=== PATIENT | female | born 1970 | race Caucasian/White ===

== ENCOUNTER 2017-08-28 21:05 | Observation (INO) ==
[2017-08-28] MEDS ORDERED: THIAMINE INJ 100 MG, FOLIC ACID INJ 1 MG, MAGNESIUM SULF INJ 2 GM, MULTIVITAMIN INJ 10 ... IV STA (21:30)
[2017-08-28] MEDS ORDERED: ONDANSETRON 4 MG/2 ML VIAL IV STA (21:30)
[2017-08-28] MEDS ORDERED: PANTOPRAZOLE 40 MG VIAL IV STA (21:30)
[2017-08-28 21:52] LABS: Basophils % 0.3 % (0.0-0.8); Eosinophils # 0.1 10*3/uL (0.0-0.87); Eosinophils % 0.9 % (0.00-10.9); Hematocrit 32.5 VOL% (35.7-47.0); Immature Granulocytes % 0.3 %; Immature Granulocytes Absolute 0.03 #; Lymphocytes # 3.8 10*3/uL (1.4-4.0); Lymphocytes % 43.6 % (21.3-54.2); Mean Corpuscular HGB Conc 33.8 GM/DL (32-36); Mean Corpuscular Hemoglobin 33 PG (27-34); Mean Corpuscular Volume 98.2 FL (87-102); Mean Platelet Volume 12.2 FL (9.6-12.0); Monocytes # 0.5 10*3/uL (0.11-0.8); Monocytes % 6.1 % (1.7-12.7); Neutrophils # 4.3 10*3/uL (1.4-7.4); Neutrophils % 48.8 % (38.7-73.9); Platelet Count 181 T/CUMM (130-400); Red Blood Count 3.31 MC/CUMM (3.8-5.5); Red Cell Distribution Width 12.7 % (9.3-17.3); White Blood Count 8.8 T/CUMM (4-12)
[2017-08-28 22:12] LABS: Apearance,Urine CLEAR (Clear); Bilirubin,Urine Negative (Negative); Blood, Urine Moderate mg/dL (Negative); Glucose,Urine (UA) Negative (Negative); Ketones,Urine Negative (Negative); Mucus,Urine Occasional /LPF (Occasional); Nitrite,Urine Negative (Negative); Protein,Urine Negative; RBC,Urine 2 /HPF (0-4); Squamous Epithelial Cell,Urine Occasional /HPF (0-10); Urine Color Straw (Yellow); Urine Specific Gravity 1.002 (1.001-1.035); Urine Urobilinogen < 2.0 EU/DL (0.2-1.0); WBC,Urine 1 /HPF (0-6)
[2017-08-28 22:18] LABS: Partial Thromboplastin Time 26.8 SECS (0-40)
[2017-08-28 22:19] LABS: Barbiturates Screen,Urine Negative (Negative); Benzodiazepines Screen,Urine Negative (Negative); Cannabinoid Screen,Urine Negative (Negative); Opiate Screen,Urine Positive (Negative); Phencyclidine Screen,Urine Negative (Negative)
[2017-08-28 22:23] LABS: INR 1.1; PT Patient Result 11.1 SECS
[2017-08-28 22:50] LABS: Albumin 2.9 G/DL (3.4-5.0); Bilirubin,Total 0.4 MG/DL (0.2-1.0); Calcium 7.4 MG/DL (8.5-10.1); Total Protein 5.9 G/DL (6.4-8.3)
[2017-08-28 22:51] LABS: Osmolality,Calculated 280.1 MOS/KG (273-304); Potassium 3.1 MMOL/L (3.5-5.1)
[2017-08-28] MEDS ORDERED: SODIUM CHLORIDE 0.9% 1,000 ML IV STA (23:44)
[2017-08-29] MEDS ORDERED: BISACODYL 5 MG TABLET PO PRN (00:09)
[2017-08-29] MEDS ORDERED: LACTULOSE 20 GM/30 ML UDCUP PO STA ×2 (00:13→04:43)
[2017-08-29] MEDS ORDERED: POTASSIUM CHLORIDE 20 MEQ TABLET PO ONE ×2 (00:14→05:00)
[2017-08-29] MEDS ORDERED: MAGNESIUM SULF RIDER 4 GM in PREMIX 1 EACH IV ONE ×2 (00:14→05:00)
[2017-08-29] MEDS ORDERED: PERMETHRIN 5% CREAM 60 GM TUBE TOP ONE (00:34)
[2017-08-29] MEDS: SODIUM CHLORIDE 0.9% 1,000 ML IV SCH ×6 (00:35→20:18)
[2017-08-29] MEDS ORDERED: SODIUM CHLORIDE 0.9% 1,000 ML IV STA (01:44)
[2017-08-29] MEDS: ACETAMINOPHEN 325 MG TABLET PO PRN ×2 (02:10→09:47)
[2017-08-29] MEDS: ONDANSETRON 4 MG/2 ML VIAL IV PRN ×4 (06:06→23:17)
[2017-08-29 06:54] LABS: Albumin 2.8 G/DL (3.4-5.0); Calcium 7.6 MG/DL (8.5-10.1); Osmolality,Calculated 285.6 MOS/KG (273-304); Potassium 3.5 MMOL/L (3.5-5.1); Total Protein 5.8 G/DL (6.4-8.3)
[2017-08-29] MEDS: ENOXAPARIN 40 MG/0.4 ML SYRINGE SUBCUT SCH (09:44)
[2017-08-29] MEDS: MULTIVITAMIN (BEROCCA) TABLET PO SCH (09:44)
[2017-08-29] MEDS: PANTOPRAZOLE 40 MG TABLET PO SCH (09:44)
[2017-08-29] MEDS: FOLIC ACID 1 MG TABLET PO SCH (09:44)
[2017-08-29] MEDS: THIAMINE 200 MG/2 ML VIAL IV SCH (09:44)
[2017-08-29] MEDS ORDERED: LACTULOSE 20 GM/30 ML UDCUP PO SCH (10:00)
[2017-08-29] MEDS: HYDROCORTISONE 2.5% CREAM 30 GM TUBE TOP SCH ×4 (10:40→20:48)
[2017-08-29] MEDS: chlordiazePOXIDE 10 MG CAPSULE PO SCH ×3 (13:28→20:47)
[2017-08-29] MEDS: LITHIUM 300 MG CAPSULE PO SCH ×2 (15:50→20:47)
[2017-08-29] MEDS ORDERED: IBUPROFEN 400 MG TABLET PO PRN (16:11)
[2017-08-30] MEDS: SODIUM CHLORIDE 0.9% 1,000 ML IV SCH ×3 (01:20→11:42)
[2017-08-30] MEDS: ACETAMINOPHEN 325 MG TABLET PO PRN (02:03)
[2017-08-30] MEDS: ONDANSETRON 4 MG/2 ML VIAL IV PRN (03:27)
[2017-08-30] MEDS: LORazepam 2 MG/1 ML VIAL IV PRN ×3 (03:49→13:28)
[2017-08-30] MEDS: FOLIC ACID 1 MG TABLET PO SCH (08:43)
[2017-08-30] MEDS: MULTIVITAMIN (BEROCCA) TABLET PO SCH (08:43)
[2017-08-30] MEDS: LITHIUM 300 MG CAPSULE PO SCH ×2 (08:43→15:07)
[2017-08-30] MEDS: THIAMINE 200 MG/2 ML VIAL IV SCH (08:43)
[2017-08-30] MEDS: PANTOPRAZOLE 40 MG TABLET PO SCH (08:43)
[2017-08-30] MEDS: ENOXAPARIN 40 MG/0.4 ML SYRINGE SUBCUT SCH (08:43)
[2017-08-30] MEDS: chlordiazePOXIDE 10 MG CAPSULE PO SCH (08:43)
[2017-08-30] MEDS ORDERED: LACTULOSE 20 GM/30 ML UDCUP PO SCH (09:00)
[2017-08-30] MEDS: chlordiazePOXIDE 25 MG CAPSULE PO SCH ×2 (10:51→13:51)
[2017-08-30 11:25] VITALS: BP 158/95
== END 2017-08-30 15:25 | disposition home or self-care (01) ==
LOC: N.EDINP 21:05 → N.ED 21:05 → N.3E 08-29 00:41
PROVIDERS: ADMIT Internal Medicine; ATTEND Internal Medicine

== ENCOUNTER 2018-06-26 20:32 | Inpatient (IN) ==
[2018-06-26] MEDS ORDERED: PANTOPRAZOLE 40 MG VIAL IV STA (21:16)
[2018-06-26] MEDS ORDERED: SODIUM CHLORIDE 0.9% 2,000 ML IV STA (21:16)
[2018-06-26] MEDS ORDERED: fentaNYL 100 MCG/2 ML VIAL IV STA (21:16)
[2018-06-26] MEDS ORDERED: METOCLOPRAMIDE 10 MG/2 ML VIAL IV STA (21:16)
[2018-06-26] MEDS ORDERED: ONDANSETRON 4 MG/2 ML VIAL IV STA (21:16)
[2018-06-26 22:12] LABS: Basophils % 0.6 % (0.0-0.8); Eosinophils # 0.1 10*3/uL (0.0-0.87); Eosinophils % 2.1 % (0.00-10.9); Hemoglobin 9.7 GM/DL (12.0-16.0); Immature Granulocytes % 0.2 %; Immature Granulocytes Absolute 0.01 #; Lymphocytes % 43.1 % (21.3-54.2); Mean Corpuscular HGB Conc 32.3 GM/DL (32-36); Mean Corpuscular Hemoglobin 34 PG (27-34); Mean Corpuscular Volume 105.6 FL (87-102); Mean Platelet Volume 10.6 FL (9.6-12.0); Monocytes # 0.3 10*3/uL (0.11-0.8); Monocytes % 6.2 % (1.7-12.7); Neutrophils # 2.2 10*3/uL (1.4-7.4); Neutrophils % 47.8 % (38.7-73.9); Platelet Count 143 T/CUMM (130-400); Red Blood Count 2.84 MC/CUMM (3.8-5.5); White Blood Count 4.7 T/CUMM (4-12)
[2018-06-26 22:30] LABS: INR 1.5; PT Patient Result 16.1 SECS; Partial Thromboplastin Time 28.4 SECS (0-40)
[2018-06-26 22:36] LABS: Apearance,Urine Slightly Hazy (Clear); Bacteria,Urine Occasional /HPF (Few); Bilirubin,Urine Negative (Negative); Blood, Urine Moderate mg/dL (Negative); Glucose,Urine (UA) Negative (Negative); Ketones,Urine Negative (Negative); Nitrite,Urine Negative (Negative); Protein,Urine Negative; RBC,Urine 4 /HPF (0-4); Squamous Epithelial Cell,Urine Occasional /HPF (0-10); Urine Color Amber (Yellow); Urine Specific Gravity 1.006 (1.001-1.035); WBC,Urine 5 /HPF (0-6)
[2018-06-26] MEDS ORDERED: VANCOMYCIN INJ 1,000 MG in SODIUM CHLORIDE 0.9% 250 ML IV STA (23:23)
[2018-06-26 23:27] LABS: Alanine Aminotransferase 168 U/L (13-56); Albumin 2.2 G/DL (3.4-5.0); Alkaline Phosphatase 111 U/L (45-117); Amylase 44 U/L (25-115); Aspartate Amino Transferase 499 U/L (0-37); Blood Urea Nitrogen 14 MG/DL (7-18); Calcium 6.4 MG/DL (8.5-10.1); Glucose 82 MG/DL (74-106); Osmolality,Calculated 276.5 MOS/KG (273-304); Potassium 3.7 MMOL/L (3.5-5.1); Sodium 139 MMOL/L (136-145); Total Protein 5.4 G/DL (6.4-8.3)
[2018-06-26] MEDS ORDERED: THIAMINE INJ 100 MG, FOLIC ACID INJ 1 MG, MAGNESIUM SULF INJ 2 GM, MULTIVITAMIN INJ 10 ... IV SCH (23:30)
[2018-06-27] MEDS ORDERED: METHOCARBAMOL 500 MG TABLET PO PRN (00:11)
[2018-06-27] MEDS ORDERED: ALBUTEROL 2.5 MG/3 ML NEB RESP TX PRN (00:11)
[2018-06-27] MEDS ORDERED: LORazepam 2 MG/1 ML VIAL IV PRN ×2 (00:11→09:54)
[2018-06-27] MEDS ORDERED: MAGNESIUM SULF RIDER 2 GM in PREMIX 1 EACH IV PRN (00:26)
[2018-06-27] MEDS ORDERED: MAGNESIUM SULF RIDER 4 GM in PREMIX 1 EACH IV PRN (00:26)
[2018-06-27] MEDS ORDERED: LORazepam 1 MG TABLET PO SCH (00:30)
[2018-06-27] MEDS: LORazepam 1 MG TABLET PO SCH ×6 (03:01→22:49)
[2018-06-27] MEDS: SODIUM CHLORIDE 0.9% 1,000 ML IV SCH ×3 (03:01→21:12)
[2018-06-27] MEDS: PIPERACILLIN/TAZOBACTAM 3,375 MG in SODIUM CHLORIDE 0.9% 100 ML IV SCH ×3 (03:02→18:26)
[2018-06-27] MEDS ORDERED: NOREPINEPHRINE 8 MG in SODIUM CHLORIDE 0.9% 242 ML IV PRN (04:49)
[2018-06-27] MEDS ORDERED: NOREPINEPHRINE 4 MG/4 ML VIAL IV ONE (04:50)
[2018-06-27 07:34] LABS: Basophils # 0.1 10*3/uL (0.0-0.2); Basophils % 0.6 % (0.0-0.8); Eosinophils # 0.1 10*3/uL (0.0-0.87); Eosinophils % 1.4 % (0.00-10.9); Hematocrit 29.3 VOL% (35.7-47.0); Hemoglobin 9.2 GM/DL (12.0-16.0); Immature Granulocytes % 0.6 %; Immature Granulocytes Absolute 0.06 #; Lymphocytes # 2.4 10*3/uL (1.4-4.0); Lymphocytes % 26.4 % (21.3-54.2); Mean Corpuscular HGB Conc 31.4 GM/DL (32-36); Mean Corpuscular Hemoglobin 34 PG (27-34); Mean Corpuscular Volume 108.1 FL (87-102); Mean Platelet Volume 10.5 FL (9.6-12.0); Monocytes # 0.5 10*3/uL (0.11-0.8); Monocytes % 5.2 % (1.7-12.7); Neutrophils # 6.1 10*3/uL (1.4-7.4); Neutrophils % 65.8 % (38.7-73.9); Platelet Count 207 T/CUMM (130-400); Red Blood Count 2.71 MC/CUMM (3.8-5.5); Red Cell Distribution Width 13.2 % (9.3-17.3); White Blood Count 9.3 T/CUMM (4-12)
[2018-06-27 07:44] LABS: INR 1.5; PT Patient Result 16.7 SECS
[2018-06-27 07:56] LABS: Albumin 2.4 G/DL (3.4-5.0); Bilirubin,Total 2.9 MG/DL (0.2-1.0); Calcium 6.5 MG/DL (8.5-10.1); Osmolality,Calculated 279.1 MOS/KG (273-304)
[2018-06-27] MEDS ORDERED: LORazepam 2 MG/1 ML VIAL IV ONE ×3 (08:24→09:49)
[2018-06-27] MEDS ORDERED: MORPHINE 4 MG/1 ML VIAL IV ONE ×2 (08:25→13:45)
[2018-06-27 09:31] LABS: Neutrophils,Peritoneal Fluid 4 %
[2018-06-27 09:32] LABS: RBC,Peritoneal Fluid 213 T/CUMM
[2018-06-27] MEDS ORDERED: MIDAZOLAM 2 MG/2 ML VIAL ONE (09:33)
[2018-06-27] MEDS ORDERED: MIDAZOLAM 2 MG/2 ML VIAL IV ONE (09:33)
[2018-06-27] MEDS ORDERED: LACTATED RINGERS 1,000 ML IV ONE (09:46)
[2018-06-27] MEDS ORDERED: HYDROCORTISONE 100 MG VIAL IV ONE (10:04)
[2018-06-27] MEDS: chlordiazePOXIDE 25 MG CAPSULE PO SCH ×4 (10:52→22:49)
[2018-06-27] MEDS: PANTOPRAZOLE 40 MG VIAL IV SCH ×2 (10:55→21:12)
[2018-06-27] MEDS: LORazepam 2 MG/1 ML VIAL IV PRN (14:06)
[2018-06-27] MEDS: VANCOMYCIN INJ 1,000 MG in SODIUM CHLORIDE 0.9% 250 ML IV SCH (14:47)
[2018-06-27] MEDS: HYDROCORTISONE 100 MG VIAL IV SCH ×2 (15:03→22:49)
[2018-06-27] MEDS: MORPHINE 4 MG/1 ML VIAL IV PRN (18:22)
[2018-06-27] MEDS: 1: THIAMINE INJ 100 MG, FOLIC ACID INJ 1 MG, MAGNESIUM SULF INJ 2 GM, MULTIVITAMIN INJ 1 IV SCH (22:25)
[2018-06-28] MEDS: MORPHINE 4 MG/1 ML VIAL IV PRN ×4 (02:36→21:27)
[2018-06-28] MEDS: LORazepam 1 MG TABLET PO SCH ×4 (03:02→20:30)
[2018-06-28] MEDS: chlordiazePOXIDE 25 MG CAPSULE PO SCH ×6 (03:02→21:46)
[2018-06-28] MEDS: VANCOMYCIN INJ 1,000 MG in SODIUM CHLORIDE 0.9% 250 ML IV SCH ×2 (03:02→17:32)
[2018-06-28] MEDS: ONDANSETRON 4 MG/2 ML VIAL IV PRN ×2 (03:03→10:09)
[2018-06-28] MEDS: PIPERACILLIN/TAZOBACTAM 3,375 MG in SODIUM CHLORIDE 0.9% 100 ML IV SCH ×3 (04:12→20:29)
[2018-06-28] MEDS: LORazepam 2 MG/1 ML VIAL IV PRN ×6 (05:17→23:38)
[2018-06-28] MEDS: HydrOXYzine PAMOATE 25 MG CAPSULE PO PRN ×2 (05:56→13:14)
[2018-06-28 06:00] LABS: Basophils % 0.3 % (0.0-0.8); Hematocrit 30.6 VOL% (35.7-47.0); Hemoglobin 9.7 GM/DL (12.0-16.0); Immature Granulocytes % 0.3 %; Immature Granulocytes Absolute 0.02 #; Lymphocytes # 0.9 10*3/uL (1.4-4.0); Lymphocytes % 12.1 % (21.3-54.2); Mean Corpuscular HGB Conc 31.7 GM/DL (32-36); Mean Corpuscular Hemoglobin 34 PG (27-34); Mean Platelet Volume 11.5 FL (9.6-12.0); Monocytes # 0.6 10*3/uL (0.11-0.8); Monocytes % 7.9 % (1.7-12.7); Neutrophils % 79.4 % (38.7-73.9); Platelet Count 159 T/CUMM (130-400); Red Blood Count 2.86 MC/CUMM (3.8-5.5); Red Cell Distribution Width 13.2 % (9.3-17.3); White Blood Count 7.5 T/CUMM (4-12)
[2018-06-28 06:07] LABS: Albumin 2.3 G/DL (3.4-5.0); Bilirubin,Total 3.4 MG/DL (0.2-1.0); Calcium 6.3 MG/DL (8.5-10.1); Osmolality,Calculated 280.4 MOS/KG (273-304); Potassium 4.1 MMOL/L (3.5-5.1); Total Protein 5.8 G/DL (6.4-8.3)
[2018-06-28 06:09] LABS: INR 2.3
[2018-06-28 06:17] LABS: PT Patient Result 25.1 SECS
[2018-06-28] MEDS: 1: THIAMINE INJ 100 MG, FOLIC ACID INJ 1 MG, MAGNESIUM SULF INJ 2 GM, MULTIVITAMIN INJ 1 IV SCH ×3 (08:45→21:27)
[2018-06-28] MEDS: DICYCLOMINE 10 MG CAPSULE PO PRN ×2 (08:46→20:30)
[2018-06-28] MEDS: PANTOPRAZOLE 40 MG VIAL IV SCH ×2 (08:48→20:30)
[2018-06-28] MEDS: HYDROCORTISONE 100 MG VIAL IV SCH ×3 (08:48→23:37)
[2018-06-28] MEDS: cloNIDine 0.1 MG TABLET PO PRN (18:28)
[2018-06-29] MEDS: LORazepam 2 MG/1 ML VIAL IV PRN ×10 (01:27→22:49)
[2018-06-29] MEDS: chlordiazePOXIDE 25 MG CAPSULE PO SCH ×6 (02:25→22:12)
[2018-06-29] MEDS: LORazepam 1 MG TABLET PO SCH ×3 (02:26→18:16)
[2018-06-29] MEDS: MORPHINE 4 MG/1 ML VIAL IV PRN ×5 (02:26→20:54)
[2018-06-29] MEDS: VANCOMYCIN INJ 1,000 MG in SODIUM CHLORIDE 0.9% 250 ML IV SCH (04:30)
[2018-06-29] MEDS: PIPERACILLIN/TAZOBACTAM 3,375 MG in SODIUM CHLORIDE 0.9% 100 ML IV SCH (05:34)
[2018-06-29 05:52] LABS: Basophils % 0.2 % (0.0-0.8); Hematocrit 32.1 VOL% (35.7-47.0); Hemoglobin 10.3 GM/DL (12.0-16.0); Immature Granulocytes % 1.4 %; Immature Granulocytes Absolute 0.08 #; Lymphocytes # 0.4 10*3/uL (1.4-4.0); Lymphocytes % 6.4 % (21.3-54.2); Mean Corpuscular HGB Conc 32.1 GM/DL (32-36); Mean Corpuscular Hemoglobin 34 PG (27-34); Mean Corpuscular Volume 107.4 FL (87-102); Mean Platelet Volume 10.4 FL (9.6-12.0); Monocytes # 0.2 10*3/uL (0.11-0.8); Monocytes % 2.7 % (1.7-12.7); Neutrophils # 5.3 10*3/uL (1.4-7.4); Neutrophils % 89.3 % (38.7-73.9); Platelet Count 159 T/CUMM (130-400); Red Blood Count 2.99 MC/CUMM (3.8-5.5); Red Cell Distribution Width 13.2 % (9.3-17.3); White Blood Count 5.9 T/CUMM (4-12)
[2018-06-29 06:29] LABS: Albumin 2.7 G/DL (3.4-5.0); Bilirubin,Total 3.8 MG/DL (0.2-1.0); Calcium 6.7 MG/DL (8.5-10.1); Osmolality,Calculated 279.4 MOS/KG (273-304); Potassium 3.9 MMOL/L (3.5-5.1); Total Protein 6.5 G/DL (6.4-8.3)
[2018-06-29] MEDS: 1: THIAMINE INJ 100 MG, FOLIC ACID INJ 1 MG, MAGNESIUM SULF INJ 2 GM, MULTIVITAMIN INJ 1 IV SCH ×3 (07:26→22:12)
[2018-06-29] MEDS: HYDROCORTISONE 100 MG VIAL IV SCH ×3 (08:20→20:52)
[2018-06-29] MEDS: PANTOPRAZOLE 40 MG VIAL IV SCH ×2 (09:03→20:53)
[2018-06-29] MEDS: HydrOXYzine PAMOATE 25 MG CAPSULE PO PRN ×2 (09:26→14:27)
[2018-06-29] MEDS ORDERED: HALOPERIDOL 5 MG/ML AMP IM ONE (11:56)
[2018-06-29 13:29] LABS: Hepatitis A Ab IgM Quant 0.35 Index; Hepatitis A Ab IgM Result Negative (Negative); Hepatitis B Core IgM Quant 0.13 Index; Hepatitis B Core IgM Result Negative (Negative); Hepatitis B Surface Ag Quant < 0.10 Index; Hepatitis B Surface Ag Result Negative (Negative); Hepatitis C Virus Ab Quant > 11.00 Index; Hepatitis C Virus Ab Result Positive (Negative)
[2018-06-30] MEDS: LORazepam 2 MG/1 ML VIAL IV PRN ×10 (00:58→21:51)
[2018-06-30] MEDS: chlordiazePOXIDE 25 MG CAPSULE PO SCH ×6 (03:09→21:50)
[2018-06-30 05:52] LABS: Basophils % 0.1 % (0.0-0.8); Hematocrit 34.3 VOL% (35.7-47.0); Hemoglobin 10.9 GM/DL (12.0-16.0); Immature Granulocytes % 0.9 %; Immature Granulocytes Absolute 0.06 #; Lymphocytes # 0.8 10*3/uL (1.4-4.0); Lymphocytes % 11.6 % (21.3-54.2); Mean Corpuscular HGB Conc 31.8 GM/DL (32-36); Mean Corpuscular Hemoglobin 34 PG (27-34); Mean Corpuscular Volume 108.2 FL (87-102); Mean Platelet Volume 10.8 FL (9.6-12.0); Monocytes # 0.3 10*3/uL (0.11-0.8); Monocytes % 4.7 % (1.7-12.7); Neutrophils # 5.8 10*3/uL (1.4-7.4); Neutrophils % 82.7 % (38.7-73.9); Platelet Count 104 T/CUMM (130-400); Red Blood Count 3.17 MC/CUMM (3.8-5.5); Red Cell Distribution Width 13.3 % (9.3-17.3)
[2018-06-30 05:55] LABS: INR 2.3
[2018-06-30 06:08] LABS: PT Patient Result 24.8 SECS
[2018-06-30 07:38] LABS: Albumin 2.1 G/DL (3.4-5.0); Bilirubin,Total 1.9 MG/DL (0.2-1.0); Calcium 6.3 MG/DL (8.5-10.1); Osmolality,Calculated 282.1 MOS/KG (273-304); Potassium 3.3 MMOL/L (3.5-5.1); Total Protein 5.5 G/DL (6.4-8.3)
[2018-06-30] MEDS: 1: THIAMINE INJ 100 MG, FOLIC ACID INJ 1 MG, MAGNESIUM SULF INJ 2 GM, MULTIVITAMIN INJ 1 IV SCH ×3 (08:13→23:04)
[2018-06-30] MEDS: PANTOPRAZOLE 40 MG VIAL IV SCH ×2 (08:14→21:51)
[2018-06-30] MEDS: HYDROCORTISONE 100 MG VIAL IV SCH ×2 (08:14→21:51)
[2018-06-30] MEDS: PHYTONADIONE 10 MG/1 ML AMP SUBCUT SCH (09:32)
[2018-06-30] MEDS: cefTRIAXone 1,000 MG in SYRINGE 1 EACH IV SCH (09:32)
[2018-06-30] MEDS: GENTAMICIN INJ 120 MG in PREMIX 1 EACH IV SCH ×2 (09:34→21:48)
[2018-06-30] MEDS: MORPHINE 4 MG/1 ML VIAL IV PRN ×2 (14:24→19:06)
[2018-07-01] MEDS: LORazepam 2 MG/1 ML VIAL IV PRN ×8 (00:03→23:22)
[2018-07-01] MEDS: chlordiazePOXIDE 25 MG CAPSULE PO SCH ×7 (02:23→21:41)
[2018-07-01 05:24] LABS: INR 1.7; PT Patient Result 18.1 SECS
[2018-07-01 05:33] LABS: Basophils % 0.1 % (0.0-0.8); Eosinophils # 0.1 10*3/uL (0.0-0.87); Eosinophils % 1.2 % (0.00-10.9); Immature Granulocytes Absolute 0.07 #; Lymphocytes # 1.7 10*3/uL (1.4-4.0); Lymphocytes % 23.4 % (21.3-54.2); Mean Corpuscular HGB Conc 33.3 GM/DL (32-36); Mean Corpuscular Hemoglobin 34 PG (27-34); Mean Corpuscular Volume 102.7 FL (87-102); Mean Platelet Volume 10.2 FL (9.6-12.0); Monocytes # 0.4 10*3/uL (0.11-0.8); Neutrophils % 68.3 % (38.7-73.9); Platelet Count 130 T/CUMM (130-400); Red Blood Count 2.92 MC/CUMM (3.8-5.5); Red Cell Distribution Width 13.3 % (9.3-17.3); White Blood Count 7.3 T/CUMM (4-12)
[2018-07-01 05:48] LABS: Albumin 2.3 G/DL (3.4-5.0); Calcium 6.7 MG/DL (8.5-10.1); Osmolality,Calculated 281.1 MOS/KG (273-304); Potassium 2.8 MMOL/L (3.5-5.1); Total Protein 5.7 G/DL (6.4-8.3)
[2018-07-01] MEDS: POTASSIUM CHLORIDE RIDER 10 MEQ in PREMIX 1 EACH IV PRN ×4 (06:48→09:48)
[2018-07-01] MEDS: 1: THIAMINE INJ 100 MG, FOLIC ACID INJ 1 MG, MAGNESIUM SULF INJ 2 GM, MULTIVITAMIN INJ 1 IV SCH ×2 (08:03→16:03)
[2018-07-01] MEDS: PHYTONADIONE 10 MG/1 ML AMP SUBCUT SCH (09:27)
[2018-07-01] MEDS: cefTRIAXone 1,000 MG in SYRINGE 1 EACH IV SCH (09:27)
[2018-07-01] MEDS: PANTOPRAZOLE 40 MG VIAL IV SCH (09:28)
[2018-07-01] MEDS: POTASSIUM CHLORIDE 20 MEQ TABLET PO SCH ×3 (09:30→18:03)
[2018-07-01] MEDS: GENTAMICIN INJ 120 MG in PREMIX 1 EACH IV SCH ×2 (09:35→21:41)
[2018-07-01] MEDS: cloNIDine 0.1 MG TABLET PO PRN (09:49)
[2018-07-01] MEDS: MORPHINE 4 MG/1 ML VIAL IV PRN (12:50)
[2018-07-01] MEDS: HydrOXYzine PAMOATE 25 MG CAPSULE PO PRN (14:00)
[2018-07-01] MEDS: HYDROCORTISONE 100 MG VIAL IV SCH (20:37)
[2018-07-02] MEDS: 1: THIAMINE INJ 100 MG, FOLIC ACID INJ 1 MG, MAGNESIUM SULF INJ 2 GM, MULTIVITAMIN INJ 1 IV SCH ×3 (00:17→16:17)
[2018-07-02] MEDS: cloNIDine 0.1 MG TABLET PO PRN (00:17)
[2018-07-02] MEDS: LORazepam 2 MG/1 ML VIAL IV PRN ×4 (02:42→09:04)
[2018-07-02] MEDS: chlordiazePOXIDE 25 MG CAPSULE PO SCH ×4 (04:09→16:16)
[2018-07-02 05:31] LABS: Basophils % 0.3 % (0.0-0.8); Eosinophils # 0.1 10*3/uL (0.0-0.87); Eosinophils % 1.9 % (0.00-10.9); Hemoglobin 9.3 GM/DL (12.0-16.0); Immature Granulocytes % 0.3 %; Immature Granulocytes Absolute 0.01 #; Lymphocytes # 0.9 10*3/uL (1.4-4.0); Lymphocytes % 25.1 % (21.3-54.2); Mean Corpuscular HGB Conc 33.2 GM/DL (32-36); Mean Corpuscular Hemoglobin 34 PG (27-34); Mean Corpuscular Volume 103.7 FL (87-102); Mean Platelet Volume 10.2 FL (9.6-12.0); Monocytes # 0.2 10*3/uL (0.11-0.8); Monocytes % 6.3 % (1.7-12.7); Neutrophils # 2.4 10*3/uL (1.4-7.4); Neutrophils % 66.1 % (38.7-73.9); Platelet Count 103 T/CUMM (130-400); Red Cell Distribution Width 13.6 % (9.3-17.3); White Blood Count 3.6 T/CUMM (4-12)
[2018-07-02 05:41] LABS: INR 1.4; PT Patient Result 15.2 SECS
[2018-07-02 05:43] LABS: Albumin 2.1 G/DL (3.4-5.0); Bilirubin,Total 1.6 MG/DL (0.2-1.0); Calcium 6.8 MG/DL (8.5-10.1); Potassium 3.1 MMOL/L (3.5-5.1); Total Protein 5.1 G/DL (6.4-8.3)
[2018-07-02] MEDS: POTASSIUM CHLORIDE RIDER 10 MEQ in PREMIX 1 EACH IV PRN ×4 (05:55→11:09)
[2018-07-02] MEDS ORDERED: LIDOCAINE 2% 5 ML VIAL ONE (09:00)
[2018-07-02] MEDS ORDERED: PROPOFOL 200 MG/20 ML VIAL IV ONE (09:00)
[2018-07-02] MEDS ORDERED: PANTOPRAZOLE 40 MG TABLET PO SCH (09:00)
[2018-07-02] MEDS: PHYTONADIONE 10 MG/1 ML AMP SUBCUT SCH (09:04)
[2018-07-02] MEDS: cefTRIAXone 1,000 MG in SYRINGE 1 EACH IV SCH (09:04)
[2018-07-02 13:16] VITALS: BP 137/74
[2018-07-02] MEDS: GENTAMICIN INJ 120 MG in PREMIX 1 EACH IV SCH (16:16)
== END 2018-07-02 15:55 | disposition home or self-care (01) | DRG 433 ==
LOC: EDUNIT# → EDBD → N.ED 20:32 → N.EDINP 06-27 00:11 → SUATTDRO 06-27 00:11 → N.CC 06-27 02:06
PROVIDERS: ADMIT Family Medicine; ATTEND Internal Medicine

== ENCOUNTER 2018-07-09 17:10 | Inpatient (IN) ==
[2018-07-09] MEDS ORDERED: PANTOPRAZOLE 40 MG VIAL IV STA (17:53)
[2018-07-09] MEDS ORDERED: AMPICILLIN/SULBACTAM 3,000 MG in SODIUM CHLORIDE 0.9% 100 ML IV STA (17:53)
[2018-07-09] MEDS ORDERED: ONDANSETRON 4 MG/2 ML VIAL IV STA (17:53)
[2018-07-09] MEDS ORDERED: HYDROmorphone 2 MG/1 ML VIAL IV STA (17:53)
[2018-07-09 18:54] LABS: Apearance,Urine CLOUDY (Clear); Bilirubin,Urine Negative (Negative); Blood, Urine Large mg/dL (Negative); Glucose,Urine (UA) Negative (Negative); Ketones,Urine Negative (Negative); Mucus,Urine Occasional /LPF (Occasional); Nitrite,Urine Negative (Negative); Protein,Urine 30 MG/DL; RBC,Urine 771 /HPF (0-4); Squamous Epithelial Cell,Urine Occasional /HPF (0-10); Urine Color Dark yellow (Yellow); Urine Specific Gravity 1.018 (1.001-1.035); WBC,Urine 11 /HPF (0-6)
[2018-07-09 19:19] LABS: Basophils # 0.1 10*3/uL (0.0-0.2); Basophils % 0.8 % (0.0-0.8); Eosinophils # 0.2 10*3/uL (0.0-0.87); Eosinophils % 2.9 % (0.00-10.9); Hematocrit 32.7 VOL% (35.7-47.0); Hemoglobin 10.1 GM/DL (12.0-16.0); Immature Granulocytes % 0.5 %; Immature Granulocytes Absolute 0.03 #; Lymphocytes % 29.9 % (21.3-54.2); Mean Corpuscular HGB Conc 30.9 GM/DL (32-36); Mean Corpuscular Hemoglobin 33 PG (27-34); Mean Corpuscular Volume 108.3 FL (87-102); Mean Platelet Volume 10.8 FL (9.6-12.0); Monocytes # 0.7 10*3/uL (0.11-0.8); Monocytes % 11.3 % (1.7-12.7); Neutrophils # 3.6 10*3/uL (1.4-7.4); Neutrophils % 54.6 % (38.7-73.9); Platelet Count 174 T/CUMM (130-400); Red Blood Count 3.02 MC/CUMM (3.8-5.5); Red Cell Distribution Width 14.5 % (9.3-17.3); White Blood Count 6.6 T/CUMM (4-12)
[2018-07-09 19:36] LABS: Albumin 2.3 G/DL (3.4-5.0); Bilirubin,Total 0.9 MG/DL (0.2-1.0); Calcium 7.5 MG/DL (8.5-10.1); Osmolality,Calculated 289.4 MOS/KG (273-304); Potassium 3.5 MMOL/L (3.5-5.1); Total Protein 5.6 G/DL (6.4-8.3)
[2018-07-09] MEDS ORDERED: DOCUSATE SODIUM 100 MG CAPSULE PO PRN (20:45)
[2018-07-09] MEDS ORDERED: LORazepam 2 MG/1 ML VIAL IV PRN (20:58)
[2018-07-09] MEDS ORDERED: MAGNESIUM SULF RIDER 4 GM in PREMIX 1 EACH IV PRN (21:07)
[2018-07-09] MEDS ORDERED: MAGNESIUM SULF RIDER 2 GM in PREMIX 1 EACH IV PRN (21:07)
[2018-07-09] MEDS ORDERED: cefTRIAXone 2,000 MG in SYRINGE 1 EACH IV SCH (21:30)
[2018-07-09] MEDS: PROPRANOLOL 10 MG TABLET PO SCH (23:05)
[2018-07-09] MEDS: HYDROmorphone 2 MG/1 ML VIAL IV PRN (23:06)
[2018-07-09] MEDS: ONDANSETRON 4 MG/2 ML VIAL IV PRN (23:06)
[2018-07-10] MEDS: HYDROmorphone 2 MG/1 ML VIAL IV PRN ×4 (03:35→17:57)
[2018-07-10] MEDS: ONDANSETRON 4 MG/2 ML VIAL IV PRN ×3 (03:38→13:44)
[2018-07-10 05:53] LABS: Basophils # 0.1 10*3/uL (0.0-0.2); Eosinophils # 0.2 10*3/uL (0.0-0.87); Eosinophils % 2.6 % (0.00-10.9); Hemoglobin 10.3 GM/DL (12.0-16.0); Immature Granulocytes % 0.2 %; Immature Granulocytes Absolute 0.01 #; Lymphocytes # 1.6 10*3/uL (1.4-4.0); Lymphocytes % 27.9 % (21.3-54.2); Mean Corpuscular HGB Conc 31.2 GM/DL (32-36); Mean Corpuscular Hemoglobin 35 PG (27-34); Mean Corpuscular Volume 110.7 FL (87-102); Mean Platelet Volume 10.7 FL (9.6-12.0); Monocytes # 0.7 10*3/uL (0.11-0.8); Monocytes % 11.9 % (1.7-12.7); Neutrophils # 3.3 10*3/uL (1.4-7.4); Neutrophils % 56.4 % (38.7-73.9); Platelet Count 159 T/CUMM (130-400); Red Blood Count 2.98 MC/CUMM (3.8-5.5); Red Cell Distribution Width 14.5 % (9.3-17.3); White Blood Count 5.8 T/CUMM (4-12)
[2018-07-10 06:14] LABS: Hypochromasia 1+; Platelet Estimate Adequate
[2018-07-10 06:15] LABS: Calcium 7.6 MG/DL (8.5-10.1)
[2018-07-10 06:16] LABS: Albumin 2.1 G/DL (3.4-5.0); Bilirubin,Total 1.1 MG/DL (0.2-1.0); Osmolality,Calculated 289.6 MOS/KG (273-304); Potassium 3.5 MMOL/L (3.5-5.1); Total Protein 5.7 G/DL (6.4-8.3)
[2018-07-10] MEDS ORDERED: PROPRANOLOL 20 MG TABLET PO SCH (09:00)
[2018-07-10] MEDS: PANTOPRAZOLE 40 MG TABLET PO SCH (09:45)
[2018-07-10] MEDS: THIAMINE 100 MG TABLET PO SCH (09:45)
[2018-07-10] MEDS: MULTIVITAMIN (CENTRUM) TABLET PO SCH (09:45)
[2018-07-10] MEDS: SPIRONOLACTONE 25 MG TABLET PO SCH ×2 (09:45→21:40)
[2018-07-10] MEDS: PROPRANOLOL 10 MG TABLET PO SCH ×2 (09:45→21:40)
[2018-07-10] MEDS: FOLIC ACID 1 MG TABLET PO SCH (09:45)
[2018-07-10] MEDS ORDERED: TISSUE ADHESIVE 1 EACH APPLICATOR TOP ONE (11:14)
[2018-07-10 11:52] LABS: Neutrophils,Peritoneal Fluid 5 %
[2018-07-10 11:56] LABS: RBC,Peritoneal Fluid 18 T/CUMM
[2018-07-10] MEDS: LORazepam 2 MG/1 ML VIAL IV PRN ×2 (16:19→21:40)
[2018-07-11] MEDS: HYDROmorphone 2 MG/1 ML VIAL IV PRN ×2 (00:25→05:42)
[2018-07-11] MEDS: ONDANSETRON 4 MG/2 ML VIAL IV PRN ×2 (00:25→05:42)
[2018-07-11 05:19] LABS: Basophils % 0.5 % (0.0-0.8); Eosinophils # 0.1 10*3/uL (0.0-0.87); Eosinophils % 2.3 % (0.00-10.9); Hematocrit 27.1 VOL% (35.7-47.0); Hemoglobin 8.5 GM/DL (12.0-16.0); Immature Granulocytes % 0.5 %; Immature Granulocytes Absolute 0.02 #; Lymphocytes # 1.2 10*3/uL (1.4-4.0); Lymphocytes % 27.8 % (21.3-54.2); Mean Corpuscular HGB Conc 31.4 GM/DL (32-36); Mean Corpuscular Hemoglobin 34 PG (27-34); Mean Corpuscular Volume 109.3 FL (87-102); Mean Platelet Volume 11.3 FL (9.6-12.0); Monocytes # 0.4 10*3/uL (0.11-0.8); Monocytes % 9.9 % (1.7-12.7); Neutrophils # 2.6 10*3/uL (1.4-7.4); Platelet Count 114 T/CUMM (130-400); Red Blood Count 2.48 MC/CUMM (3.8-5.5); Red Cell Distribution Width 14.3 % (9.3-17.3); White Blood Count 4.4 T/CUMM (4-12)
[2018-07-11 05:45] LABS: Albumin 1.7 G/DL (3.4-5.0); Bilirubin,Total 1.4 MG/DL (0.2-1.0); Calcium 7.5 MG/DL (8.5-10.1); Potassium 3.5 MMOL/L (3.5-5.1); Total Protein 4.7 G/DL (6.4-8.3)
[2018-07-11 08:06] LABS: Hematocrit 32.7 VOL% (35.7-47.0); Hemoglobin 9.9 GM/DL (12.0-16.0)
[2018-07-11] MEDS: PANTOPRAZOLE 40 MG TABLET PO SCH (08:58)
[2018-07-11] MEDS: PROPRANOLOL 10 MG TABLET PO SCH (08:58)
[2018-07-11] MEDS: THIAMINE 100 MG TABLET PO SCH (08:58)
[2018-07-11] MEDS: SPIRONOLACTONE 25 MG TABLET PO SCH (08:59)
[2018-07-11] MEDS: FOLIC ACID 1 MG TABLET PO SCH (08:59)
[2018-07-11] MEDS: MULTIVITAMIN (CENTRUM) TABLET PO SCH (08:59)
[2018-07-11 09:44] VITALS: BP 99/75
== END 2018-07-11 10:30 | disposition home or self-care (01) | DRG 433 ==
LOC: N.ED 17:10 → N.EDINP 20:07 → N.5E 21:00
PROVIDERS: ADMIT Internal Medicine; ATTEND Internal Medicine

== ENCOUNTER 2018-07-24 16:05 | Observation (INO) ==
[2018-07-24] MEDS ORDERED: SODIUM CHLORIDE 0.9% 500 ML IV STA (16:26)
[2018-07-24] MEDS ORDERED: ONDANSETRON 4 MG/2 ML VIAL IV STA (16:26)
[2018-07-24] MEDS ORDERED: PANTOPRAZOLE 40 MG VIAL IV STA (16:26)
[2018-07-24] MEDS ORDERED: THIAMINE INJ 100 MG, FOLIC ACID INJ 1 MG, MAGNESIUM SULF INJ 2 GM, MULTIVITAMIN INJ 10 ... IV ONE (16:29)
[2018-07-24 17:32] LABS: Basophils # 0.1 10*3/uL (0.0-0.2); Basophils % 0.9 % (0.0-0.8); Eosinophils # 0.2 10*3/uL (0.0-0.87); Eosinophils % 3.1 % (0.00-10.9); Hematocrit 35.8 VOL% (35.7-47.0); Hemoglobin 11.4 GM/DL (12.0-16.0); Immature Granulocytes % 0.4 %; Immature Granulocytes Absolute 0.03 #; Lymphocytes # 2.9 10*3/uL (1.4-4.0); Mean Corpuscular HGB Conc 31.8 GM/DL (32-36); Mean Corpuscular Hemoglobin 34 PG (27-34); Mean Corpuscular Volume 107.2 FL (87-102); Mean Platelet Volume 10.7 FL (9.6-12.0); Monocytes # 0.7 10*3/uL (0.11-0.8); Monocytes % 8.8 % (1.7-12.7); Neutrophils # 3.9 10*3/uL (1.4-7.4); Neutrophils % 49.8 % (38.7-73.9); Platelet Count 325 T/CUMM (130-400); Red Blood Count 3.34 MC/CUMM (3.8-5.5); Red Cell Distribution Width 14.3 % (9.3-17.3); White Blood Count 7.7 T/CUMM (4-12)
[2018-07-24 17:46] LABS: Alanine Aminotransferase 53 U/L (13-56); Albumin 2.6 G/DL (3.4-5.0); Alkaline Phosphatase 175 U/L (45-117); Amylase 31 U/L (25-115); Aspartate Amino Transferase 185 U/L (0-37); Blood Urea Nitrogen 4 MG/DL (7-18); Calcium 7.9 MG/DL (8.5-10.1); Glucose 101 MG/DL (74-106); Osmolality,Calculated 282.8 MOS/KG (273-304); Potassium 4.2 MMOL/L (3.5-5.1); Sodium 144 MMOL/L (136-145); Total Protein 6.6 G/DL (6.4-8.3)
[2018-07-24 18:09] LABS: Apearance,Urine CLEAR (Clear); Bilirubin,Urine Negative (Negative); Blood, Urine Small mg/dL (Negative); Glucose,Urine (UA) Negative (Negative); Ketones,Urine Negative (Negative); Nitrite,Urine Negative (Negative); Protein,Urine Negative; RBC,Urine 3 /HPF (0-4); Urine Color Yellow (Yellow); Urine Specific Gravity 1.006 (1.001-1.035); Urine Urobilinogen < 2.0 EU/DL (0.2-1.0); WBC,Urine 1 /HPF (0-6)
[2018-07-24 18:16] LABS: Barbiturates Screen,Urine Negative (Negative); Benzodiazepines Screen,Urine Positive (Negative); Cannabinoid Screen,Urine Negative (Negative); Opiate Screen,Urine Negative (Negative); Phencyclidine Screen,Urine Negative (Negative)
[2018-07-24 18:31] LABS: INR 1.3; PT Patient Result 13.7 SECS
[2018-07-24] MEDS ORDERED: LORazepam 2 MG/1 ML VIAL IV PRN (18:52)
[2018-07-24] MEDS ORDERED: DICYCLOMINE 10 MG CAPSULE PO PRN (18:52)
[2018-07-24] MEDS ORDERED: HydrOXYzine PAMOATE 25 MG CAPSULE PO PRN (18:52)
[2018-07-24] MEDS ORDERED: METHOCARBAMOL 500 MG TABLET PO PRN (18:52)
[2018-07-24] MEDS ORDERED: LORazepam 1 MG TABLET PO SCH (20:00)
[2018-07-24] MEDS: HYDROmorphone 2 MG/1 ML VIAL IV PRN (22:19)
[2018-07-24] MEDS: LORazepam 1 MG TABLET PO SCH (22:25)
[2018-07-24] MEDS: PIPERACILLIN/TAZOBACTAM 3,375 MG in SODIUM CHLORIDE 0.9% 100 ML IV SCH (22:27)
[2018-07-24] MEDS: ONDANSETRON 4 MG/2 ML VIAL IV PRN (22:33)
[2018-07-25] MEDS: HYDROmorphone 2 MG/1 ML VIAL IV PRN ×7 (01:23→22:21)
[2018-07-25] MEDS ORDERED: PIPERACILLIN/TAZOBACTAM 3,375 MG in SODIUM CHLORIDE 0.9% 100 ML IV SCH (02:00)
[2018-07-25] MEDS: LORazepam 1 MG TABLET PO SCH ×6 (02:02→21:37)
[2018-07-25] MEDS: ONDANSETRON 4 MG/2 ML VIAL IV PRN (04:59)
[2018-07-25] MEDS: PIPERACILLIN/TAZOBACTAM 3,375 MG in SODIUM CHLORIDE 0.9% 100 ML IV SCH ×3 (05:57→21:32)
[2018-07-25 07:44] LABS: Basophils % 0.7 % (0.0-0.8); Eosinophils # 0.3 10*3/uL (0.0-0.87); Eosinophils % 4.7 % (0.00-10.9); Hematocrit 32.2 VOL% (35.7-47.0); Hemoglobin 10.1 GM/DL (12.0-16.0); Immature Granulocytes % 0.2 %; Immature Granulocytes Absolute 0.01 #; Lymphocytes # 1.9 10*3/uL (1.4-4.0); Lymphocytes % 34.5 % (21.3-54.2); Mean Corpuscular HGB Conc 31.4 GM/DL (32-36); Mean Corpuscular Hemoglobin 33 PG (27-34); Mean Corpuscular Volume 106.6 FL (87-102); Mean Platelet Volume 10.5 FL (9.6-12.0); Monocytes # 0.6 10*3/uL (0.11-0.8); Monocytes % 11.3 % (1.7-12.7); Neutrophils # 2.7 10*3/uL (1.4-7.4); Neutrophils % 48.6 % (38.7-73.9); Platelet Count 244 T/CUMM (130-400); Red Blood Count 3.02 MC/CUMM (3.8-5.5); Red Cell Distribution Width 14.1 % (9.3-17.3); White Blood Count 5.5 T/CUMM (4-12)
[2018-07-25 07:59] LABS: Albumin 2.2 G/DL (3.4-5.0); Bilirubin,Total 1.3 MG/DL (0.2-1.0); Calcium 7.3 MG/DL (8.5-10.1); Potassium 3.8 MMOL/L (3.5-5.1); Total Protein 5.9 G/DL (6.4-8.3)
[2018-07-25 10:00] LABS: Neutrophils,Peritoneal Fluid 2 %
[2018-07-25] MEDS: PANTOPRAZOLE 40 MG TABLET PO SCH (10:04)
[2018-07-25 10:09] LABS: RBC,Peritoneal Fluid 28 T/CUMM
[2018-07-25] MEDS: chlordiazePOXIDE 25 MG CAPSULE PO SCH ×2 (14:49→21:44)
[2018-07-26] MEDS: HYDROmorphone 2 MG/1 ML VIAL IV PRN ×2 (02:00→05:55)
[2018-07-26] MEDS: LORazepam 1 MG TABLET PO SCH (04:44)
[2018-07-26] MEDS: PIPERACILLIN/TAZOBACTAM 3,375 MG in SODIUM CHLORIDE 0.9% 100 ML IV SCH (04:45)
[2018-07-26 07:42] VITALS: BP 110/70
[2018-07-26] MEDS ORDERED: LORazepam 2 MG/1 ML VIAL IV ONE (09:20)
[2018-07-26] MEDS ORDERED: HYDROmorphone 2 MG/1 ML VIAL IV ONE (09:20)
[2018-07-26] MEDS: PANTOPRAZOLE 40 MG TABLET PO SCH (10:01)
[2018-07-26] MEDS: chlordiazePOXIDE 25 MG CAPSULE PO SCH (10:01)
== END 2018-07-26 12:57 | disposition home or self-care (01) ==
LOC: EDBD → EDUNIT# → N.ED 16:05 → N.EDINP 16:05 → N.3E 20:05
PROVIDERS: ADMIT Internal Medicine; ATTEND Internal Medicine

== ENCOUNTER 2018-07-29 20:15 | Observation (INO) ==
[2018-07-29] MEDS ORDERED: THIAMINE INJ 100 MG, FOLIC ACID INJ 1 MG, MAGNESIUM SULF INJ 2 GM, MULTIVITAMIN INJ 10 ... IV STA (20:43)
[2018-07-29] MEDS ORDERED: METOCLOPRAMIDE 10 MG/2 ML VIAL IV STA (20:50)
[2018-07-29] MEDS ORDERED: ONDANSETRON 4 MG/2 ML VIAL IV STA (20:50)
[2018-07-29] MEDS ORDERED: PANTOPRAZOLE 40 MG VIAL IV STA (20:50)
[2018-07-29 21:38] LABS: Basophils # 0.1 10*3/uL (0.0-0.2); Basophils % 0.6 % (0.0-0.8); Eosinophils # 0.4 10*3/uL (0.0-0.87); Eosinophils % 4.7 % (0.00-10.9); Hematocrit 36.1 VOL% (35.7-47.0); Hemoglobin 11.5 GM/DL (12.0-16.0); Immature Granulocytes % 0.2 %; Immature Granulocytes Absolute 0.02 #; Lymphocytes # 3.5 10*3/uL (1.4-4.0); Lymphocytes % 39.2 % (21.3-54.2); Mean Corpuscular HGB Conc 31.9 GM/DL (32-36); Mean Corpuscular Hemoglobin 34 PG (27-34); Mean Corpuscular Volume 106.2 FL (87-102); Mean Platelet Volume 10.2 FL (9.6-12.0); Monocytes # 0.7 10*3/uL (0.11-0.8); Monocytes % 7.6 % (1.7-12.7); Neutrophils # 4.3 10*3/uL (1.4-7.4); Neutrophils % 47.7 % (38.7-73.9); Platelet Count 220 T/CUMM (130-400)
[2018-07-29 21:53] LABS: INR 1.3; PT Patient Result 14.5 SECS; Partial Thromboplastin Time 27.1 SECS (0-40)
[2018-07-29 21:55] LABS: Apearance,Urine CLEAR (Clear); Bacteria,Urine Occasional /HPF (Few); Bilirubin,Urine Negative (Negative); Blood, Urine Large mg/dL (Negative); Glucose,Urine (UA) Negative (Negative); Ketones,Urine Negative (Negative); Nitrite,Urine Negative (Negative); Protein,Urine Negative; RBC,Urine 17 /HPF (0-4); Squamous Epithelial Cell,Urine Occasional /HPF (0-10); Urine Color Yellow (Yellow); Urine Specific Gravity 1.005 (1.001-1.035); Urine Urobilinogen < 2.0 EU/DL (0.2-1.0); WBC,Urine 4 /HPF (0-6)
[2018-07-29 21:59] LABS: Barbiturates Screen,Urine Negative (Negative); Benzodiazepines Screen,Urine Positive (Negative); Cannabinoid Screen,Urine Negative (Negative); Opiate Screen,Urine Positive (Negative); Phencyclidine Screen,Urine Negative (Negative)
[2018-07-29 22:11] LABS: Alanine Aminotransferase 45 U/L (13-56); Albumin 2.3 G/DL (3.4-5.0); Alkaline Phosphatase 185 U/L (45-117); Aspartate Amino Transferase 143 U/L (0-37); Blood Urea Nitrogen 3 MG/DL (7-18); Calcium 7.7 MG/DL (8.5-10.1); Glucose 110 MG/DL (74-106); Osmolality,Calculated 283.8 MOS/KG (273-304); Potassium 3.5 MMOL/L (3.5-5.1); Sodium 144 MMOL/L (136-145); Total Protein 6.2 G/DL (6.4-8.3); Troponin I < 0.015 NG/ML (0.00-0.045)
[2018-07-30] MEDS ORDERED: cefTRIAXone 1,000 MG in SYRINGE 1 EACH IV SCH (01:00)
[2018-07-30] MEDS ORDERED: MORPHINE 4 MG/1 ML VIAL IV STA (01:07)
[2018-07-30] MEDS ORDERED: SODIUM CHLORIDE 0.9% 100 ML IV ONE (01:11)
[2018-07-30] MEDS: ONDANSETRON 4 MG/2 ML VIAL IV PRN ×2 (01:15→09:15)
[2018-07-30 04:14] LABS: Basophils # 0.1 10*3/uL (0.0-0.2); Basophils % 0.7 % (0.0-0.8); Eosinophils # 0.4 10*3/uL (0.0-0.87); Hematocrit 32.2 VOL% (35.7-47.0); Hemoglobin 10.1 GM/DL (12.0-16.0); Immature Granulocytes % 0.3 %; Immature Granulocytes Absolute 0.02 #; Lymphocytes # 2.8 10*3/uL (1.4-4.0); Lymphocytes % 39.2 % (21.3-54.2); Mean Corpuscular HGB Conc 31.4 GM/DL (32-36); Mean Corpuscular Hemoglobin 33 PG (27-34); Mean Corpuscular Volume 106.3 FL (87-102); Mean Platelet Volume 10.3 FL (9.6-12.0); Monocytes # 0.6 10*3/uL (0.11-0.8); Monocytes % 8.5 % (1.7-12.7); Neutrophils # 3.3 10*3/uL (1.4-7.4); Neutrophils % 46.3 % (38.7-73.9); Platelet Count 198 T/CUMM (130-400); Red Blood Count 3.03 MC/CUMM (3.8-5.5); Red Cell Distribution Width 13.3 % (9.3-17.3); White Blood Count 7.1 T/CUMM (4-12)
[2018-07-30 04:35] LABS: Albumin 2.1 G/DL (3.4-5.0); Bilirubin,Total 0.8 MG/DL (0.2-1.0); Osmolality,Calculated 284.7 MOS/KG (273-304); Potassium 3.2 MMOL/L (3.5-5.1); Total Protein 5.5 G/DL (6.4-8.3)
[2018-07-30] MEDS ORDERED: PNEUMOCOCCAL VACCINE (23 VALENT) 0.5 ML VIAL IM ONE (05:39)
[2018-07-30] MEDS ORDERED: POTASSIUM CHLORIDE 20 MEQ TABLET PO ONE (07:44)
[2018-07-30] MEDS ORDERED: ALBUMIN 25% 25 GM in PREMIX 1 EACH IV ONE (07:56)
[2018-07-30] MEDS ORDERED: ONDANSETRON 4 MG/2 ML VIAL ONE (08:15)
[2018-07-30 08:23] LABS: Free T4 (Free Thyroxine) 1.02 NG/DL (0.76-1.46)
[2018-07-30 08:34] LABS: Folate > 24.0 NG/ML (5.4-24.0); Vitamin B12 1498 PG/ML (211-911)
[2018-07-30 08:54] VITALS: BP 114/79
[2018-07-30] MEDS ORDERED: PANTOPRAZOLE 40 MG TABLET PO SCH (09:00)
[2018-07-30] MEDS ORDERED: FOLIC ACID 1 MG TABLET PO SCH (09:00)
[2018-07-30] MEDS ORDERED: PROPRANOLOL 10 MG TABLET PO SCH (09:00)
[2018-07-30] MEDS ORDERED: SPIRONOLACTONE 25 MG TABLET PO SCH (09:00)
[2018-07-30] MEDS ORDERED: THIAMINE 100 MG TABLET PO SCH (09:00)
[2018-07-30] MEDS ORDERED: LEVOTHYROXINE 50 MCG TABLET PO SCH (09:00)
[2018-07-30] MEDS ORDERED: KETOROLAC 15 MG/1 ML VIAL IV ONE (09:36)
[2018-07-30 09:38] LABS: RBC,Peritoneal Fluid 168 T/CUMM
== END 2018-07-30 13:07 | disposition home or self-care (01) ==
LOC: EDUNIT# → N.ED 20:15 → N.EDINP 20:15 → N.3E 07-30 04:32
PROVIDERS: ADMIT Internal Medicine; ATTEND Internal Medicine

== ENCOUNTER 2018-08-03 20:47 | Observation (INO) ==
[2018-08-03] MEDS ORDERED: THIAMINE INJ 100 MG, FOLIC ACID INJ 1 MG, MAGNESIUM SULF INJ 2 GM, MULTIVITAMIN INJ 10 ... IV STA (22:03)
[2018-08-03] MEDS ORDERED: FAMOTIDINE 20 MG/2 ML VIAL IV STA (22:05)
[2018-08-03] MEDS ORDERED: ONDANSETRON 4 MG/2 ML VIAL IV STA (22:05)
[2018-08-03 22:18] LABS: Basophils % 0.6 % (0.0-0.8); Eosinophils # 0.1 10*3/uL (0.0-0.87); Eosinophils % 1.3 % (0.00-10.9); Hemoglobin 10.8 GM/DL (12.0-16.0); Immature Granulocytes % 0.3 %; Immature Granulocytes Absolute 0.02 #; Lymphocytes % 43.9 % (21.3-54.2); Mean Corpuscular HGB Conc 31.8 GM/DL (32-36); Mean Corpuscular Hemoglobin 33 PG (27-34); Mean Corpuscular Volume 104.6 FL (87-102); Mean Platelet Volume 10.6 FL (9.6-12.0); Monocytes # 0.4 10*3/uL (0.11-0.8); Monocytes % 5.9 % (1.7-12.7); Neutrophils # 3.3 10*3/uL (1.4-7.4); Platelet Count 165 T/CUMM (130-400); Red Blood Count 3.25 MC/CUMM (3.8-5.5); Red Cell Distribution Width 13.3 % (9.3-17.3); White Blood Count 6.8 T/CUMM (4-12)
[2018-08-03 22:27] LABS: INR 1.4; PT Patient Result 14.8 SECS
[2018-08-03 22:50] LABS: Albumin 2.2 G/DL (3.4-5.0); Bilirubin,Total 0.8 MG/DL (0.2-1.0); Calcium 7.7 MG/DL (8.5-10.1); Osmolality,Calculated 290.3 MOS/KG (273-304); Potassium 3.7 MMOL/L (3.5-5.1)
[2018-08-03 23:28] LABS: Apearance,Urine CLEAR (Clear); Bacteria,Urine Occasional /HPF (Few); Bilirubin,Urine Negative (Negative); Blood, Urine Large mg/dL (Negative); Glucose,Urine (UA) Negative (Negative); Hyaline Casts,Urine 4 /LPF (0-3); Ketones,Urine Negative (Negative); Mucus,Urine Occasional /LPF (Occasional); Nitrite,Urine Negative (Negative); Protein,Urine Negative; RBC,Urine 3 /HPF (0-4); Squamous Epithelial Cell,Urine Occasional /HPF (0-10); Urine Color Yellow (Yellow); Urine Specific Gravity 1.005 (1.001-1.035); Urine Urobilinogen < 2.0 EU/DL (0.2-1.0); WBC,Urine 1 /HPF (0-6)
[2018-08-03 23:39] LABS: Barbiturates Screen,Urine Negative (Negative); Benzodiazepines Screen,Urine Positive (Negative); Cannabinoid Screen,Urine Negative (Negative); Opiate Screen,Urine Negative (Negative); Phencyclidine Screen,Urine Negative (Negative)
[2018-08-04] MEDS ORDERED: SENNA 8.6 MG TABLET PO PRN (02:04)
[2018-08-04] MEDS ORDERED: traZODone 50 MG TABLET PO PRN (02:04)
[2018-08-04] MEDS ORDERED: ALUMINUM/MAGNES/SIMETH MAX STR 30 ML UDCUP PO PRN (02:04)
[2018-08-04] MEDS ORDERED: LORazepam 2 MG/1 ML VIAL IV PRN (02:04)
[2018-08-04] MEDS ORDERED: ONDANSETRON 4 MG/2 ML VIAL IV PRN (02:04)
[2018-08-04] MEDS ORDERED: METHOCARBAMOL 500 MG TABLET PO PRN (02:12)
[2018-08-04] MEDS ORDERED: MAGNESIUM SULF RIDER 2 GM in PREMIX 1 EACH IV PRN (02:15)
[2018-08-04] MEDS ORDERED: MAGNESIUM SULF RIDER 4 GM in PREMIX 1 EACH IV PRN (02:15)
[2018-08-04] MEDS: chlordiazePOXIDE 25 MG CAPSULE PO SCH ×4 (04:30→19:45)
[2018-08-04] MEDS: IBUPROFEN 600 MG TABLET PO PRN ×2 (04:42→21:27)
[2018-08-04 05:28] LABS: Basophils % 0.6 % (0.0-0.8); Eosinophils # 0.1 10*3/uL (0.0-0.87); Eosinophils % 2.2 % (0.00-10.9); Hematocrit 33.9 VOL% (35.7-47.0); Hemoglobin 10.7 GM/DL (12.0-16.0); Immature Granulocytes % 0.2 %; Immature Granulocytes Absolute 0.01 #; Lymphocytes # 2.4 10*3/uL (1.4-4.0); Lymphocytes % 48.7 % (21.3-54.2); Mean Corpuscular HGB Conc 31.6 GM/DL (32-36); Mean Corpuscular Hemoglobin 33 PG (27-34); Mean Corpuscular Volume 105.9 FL (87-102); Mean Platelet Volume 10.1 FL (9.6-12.0); Monocytes # 0.4 10*3/uL (0.11-0.8); Monocytes % 8.8 % (1.7-12.7); Neutrophils # 1.9 10*3/uL (1.4-7.4); Neutrophils % 39.5 % (38.7-73.9); Platelet Count 141 T/CUMM (130-400); Red Cell Distribution Width 13.2 % (9.3-17.3); White Blood Count 4.9 T/CUMM (4-12)
[2018-08-04 06:00] LABS: Albumin 2.3 G/DL (3.4-5.0); Bilirubin,Total 0.9 MG/DL (0.2-1.0); Calcium 7.2 MG/DL (8.5-10.1); Osmolality,Calculated 286.6 MOS/KG (273-304); Potassium 3.6 MMOL/L (3.5-5.1); Total Protein 5.5 G/DL (6.4-8.3)
[2018-08-04] MEDS: LORazepam 2 MG/1 ML VIAL IV PRN ×4 (07:53→23:50)
[2018-08-04] MEDS: MULTIVITAMIN (CENTRUM) TABLET PO SCH (09:07)
[2018-08-04] MEDS: THIAMINE 100 MG TABLET PO SCH (09:08)
[2018-08-04] MEDS: FOLIC ACID 1 MG TABLET PO SCH (09:08)
[2018-08-04] MEDS: ONDANSETRON 4 MG/2 ML VIAL IV PRN ×3 (10:06→23:50)
[2018-08-04] MEDS ORDERED: PROMETHAZINE 25 MG/1 ML VIAL IM PRN (10:21)
[2018-08-04] MEDS ORDERED: LORazepam 2 MG/1 ML VIAL IV ONE (10:24)
[2018-08-04] MEDS ORDERED: MAGNESIUM SULF RIDER 4 GM in PREMIX 1 EACH IV ONE (10:29)
[2018-08-04] MEDS: FUROSEMIDE 20 MG TABLET PO SCH (15:27)
[2018-08-04] MEDS: PROPRANOLOL 10 MG TABLET PO SCH (21:07)
[2018-08-04] MEDS: SPIRONOLACTONE 25 MG TABLET PO SCH (21:07)
[2018-08-05] MEDS: chlordiazePOXIDE 25 MG CAPSULE PO SCH ×2 (03:27→10:43)
[2018-08-05] MEDS: LORazepam 2 MG/1 ML VIAL IV PRN ×2 (05:38→09:28)
[2018-08-05] MEDS: ONDANSETRON 4 MG/2 ML VIAL IV PRN ×2 (05:38→09:29)
[2018-08-05 08:55] LABS: Basophils % 0.6 % (0.0-0.8); Eosinophils # 0.1 10*3/uL (0.0-0.87); Eosinophils % 3.1 % (0.00-10.9); Hematocrit 32.8 VOL% (35.7-47.0); Hemoglobin 10.5 GM/DL (12.0-16.0); Immature Granulocytes % 0.3 %; Immature Granulocytes Absolute 0.01 #; Lymphocytes # 1.2 10*3/uL (1.4-4.0); Lymphocytes % 37.1 % (21.3-54.2); Mean Corpuscular Hemoglobin 34 PG (27-34); Mean Corpuscular Volume 105.5 FL (87-102); Mean Platelet Volume 11.1 FL (9.6-12.0); Monocytes # 0.3 10*3/uL (0.11-0.8); Monocytes % 10.4 % (1.7-12.7); Neutrophils # 1.6 10*3/uL (1.4-7.4); Neutrophils % 48.5 % (38.7-73.9); Platelet Count 118 T/CUMM (130-400); Red Blood Count 3.11 MC/CUMM (3.8-5.5); Red Cell Distribution Width 13.2 % (9.3-17.3); White Blood Count 3.3 T/CUMM (4-12)
[2018-08-05] MEDS ORDERED: LEVOTHYROXINE 50 MCG TABLET PO SCH (09:00)
[2018-08-05 09:16] LABS: Albumin 2.3 G/DL (3.4-5.0); Bilirubin,Total 2.7 MG/DL (0.2-1.0); Calcium 7.6 MG/DL (8.5-10.1); Osmolality,Calculated 283.8 MOS/KG (273-304); Potassium 3.9 MMOL/L (3.5-5.1); Total Protein 5.6 G/DL (6.4-8.3)
[2018-08-05] MEDS ORDERED: LORazepam 1 MG TABLET PO PRN (10:02)
[2018-08-05] MEDS ORDERED: ONDANSETRON ODT 4 MG TABLET PO PRN (10:03)
[2018-08-05 10:41] LABS: Neutrophils,Peritoneal Fluid 16 %
[2018-08-05] MEDS: FUROSEMIDE 20 MG TABLET PO SCH (10:44)
[2018-08-05] MEDS: SPIRONOLACTONE 25 MG TABLET PO SCH (10:44)
[2018-08-05] MEDS: FOLIC ACID 1 MG TABLET PO SCH (10:44)
[2018-08-05] MEDS: PROPRANOLOL 10 MG TABLET PO SCH (10:44)
[2018-08-05] MEDS: MULTIVITAMIN (CENTRUM) TABLET PO SCH (10:44)
[2018-08-05] MEDS: THIAMINE 100 MG TABLET PO SCH (10:44)
[2018-08-05 10:48] LABS: RBC,Peritoneal Fluid 449 T/CUMM
[2018-08-05 12:25] VITALS: BP 116/85
== END 2018-08-05 14:08 | disposition left against medical advice (07) ==
LOC: EDUNIT# → EDBD → N.EDINP 20:47 → N.ED 20:47 → N.TELES 08-04 03:23
PROVIDERS: ADMIT Internal Medicine; ATTEND Internal Medicine

== ENCOUNTER 2018-08-23 16:12 | Inpatient (IN) ==
[2018-08-23] MEDS ORDERED: SODIUM CHLORIDE 0.9% 1,000 ML IV STA (17:12)
[2018-08-23] MEDS ORDERED: PANTOPRAZOLE 40 MG VIAL IV STA (17:12)
[2018-08-23] MEDS ORDERED: ONDANSETRON 4 MG/2 ML VIAL IV STA (17:12)
[2018-08-23] MEDS ORDERED: KETOROLAC 30 MG/1 ML VIAL IV STA (17:12)
[2018-08-23 18:27] LABS: Basophils # 0.1 10*3/uL (0.0-0.2); Basophils % 0.7 % (0.0-0.8); Eosinophils # 0.1 10*3/uL (0.0-0.87); Eosinophils % 1.4 % (0.00-10.9); Hematocrit 36.3 VOL% (35.7-47.0); Hemoglobin 11.6 GM/DL (12.0-16.0); Immature Granulocytes % 0.4 %; Immature Granulocytes Absolute 0.04 #; Lymphocytes # 3.6 10*3/uL (1.4-4.0); Lymphocytes % 39.2 % (21.3-54.2); Mean Corpuscular Volume 103.7 FL (87-102); Mean Platelet Volume 10.4 FL (9.6-12.0); Monocytes % 5.9 % (1.7-12.7); Neutrophils % 52.4 % (38.7-73.9); Platelet Count 253 T/CUMM (130-400); Red Cell Distribution Width 13.3 % (9.3-17.3); White Blood Count 9.2 T/CUMM (4-12)
[2018-08-23 18:54] LABS: Alanine Aminotransferase 55 U/L (13-56); Albumin 2.7 G/DL (3.4-5.0); Alkaline Phosphatase 221 U/L (45-117); Amylase 101 U/L (25-115); Aspartate Amino Transferase 205 U/L (0-37); Blood Urea Nitrogen 9 MG/DL (7-18); Calcium 7.9 MG/DL (8.5-10.1); Glucose 103 MG/DL (74-106)
[2018-08-23] MEDS ORDERED: NICOTINE 21 MG/24 HR PATCH TRANSDERM PRN (20:01)
[2018-08-23] MEDS ORDERED: PROMETHAZINE 25 MG/1 ML VIAL IM PRN (20:01)
[2018-08-23] MEDS ORDERED: ACETAMINOPHEN 325 MG TABLET PO PRN (20:01)
[2018-08-23] MEDS ORDERED: BISACODYL 5 MG TABLET PO PRN (20:01)
[2018-08-23] MEDS ORDERED: diphenhydrAMINE CAP 25 MG CAPSULE PO PRN (20:01)
[2018-08-23] MEDS: PROPRANOLOL 10 MG TABLET PO SCH (21:30)
[2018-08-23] MEDS: SPIRONOLACTONE 25 MG TABLET PO SCH (21:30)
[2018-08-23] MEDS: ONDANSETRON 4 MG/2 ML VIAL IV PRN (21:32)
[2018-08-23] MEDS ORDERED: LORazepam 2 MG/1 ML VIAL IM ONE (23:06)
[2018-08-23] MEDS ORDERED: LORazepam 2 MG/1 ML VIAL IV ONE (23:30)
[2018-08-24] MEDS: ONDANSETRON 4 MG/2 ML VIAL IV PRN ×5 (01:59→18:49)
[2018-08-24] MEDS: MORPHINE 4 MG/1 ML VIAL IV PRN ×6 (02:01→23:12)
[2018-08-24 05:18] LABS: Barbiturates Screen,Urine Negative (Negative); Benzodiazepines Screen,Urine Positive (Negative); Cannabinoid Screen,Urine Negative (Negative); Opiate Screen,Urine Positive (Negative); Phencyclidine Screen,Urine Negative (Negative)
[2018-08-24] MEDS: LEVOTHYROXINE 50 MCG TABLET PO SCH (06:04)
[2018-08-24 07:05] LABS: Albumin 2.2 G/DL (3.4-5.0); Bilirubin,Total 0.6 MG/DL (0.2-1.0); Calcium 7.6 MG/DL (8.5-10.1); Osmolality,Calculated 283.8 MOS/KG (273-304); Total Protein 5.8 G/DL (6.4-8.3)
[2018-08-24] MEDS: PROPRANOLOL 10 MG TABLET PO SCH ×2 (08:49→21:20)
[2018-08-24] MEDS: LORazepam 2 MG/1 ML VIAL IV PRN ×3 (08:49→16:57)
[2018-08-24] MEDS: FUROSEMIDE 20 MG TABLET PO SCH (08:50)
[2018-08-24] MEDS: MULTIVITAMIN (CENTRUM) TABLET PO SCH (08:50)
[2018-08-24] MEDS: SPIRONOLACTONE 25 MG TABLET PO SCH ×2 (08:50→21:20)
[2018-08-24] MEDS: PANTOPRAZOLE 40 MG TABLET PO SCH (08:50)
[2018-08-24] MEDS: THIAMINE 100 MG TABLET PO SCH (08:50)
[2018-08-24 19:33] LABS: RBC,Peritoneal Fluid 147 T/CUMM
[2018-08-25] MEDS: LORazepam 2 MG/1 ML VIAL IV PRN ×2 (01:14→06:47)
[2018-08-25] MEDS: MORPHINE 4 MG/1 ML VIAL IV PRN ×2 (05:04→08:35)
[2018-08-25] MEDS: LEVOTHYROXINE 50 MCG TABLET PO SCH (05:04)
[2018-08-25 08:12] VITALS: BP 118/78
[2018-08-25] MEDS: MULTIVITAMIN (CENTRUM) TABLET PO SCH (08:33)
[2018-08-25] MEDS: SPIRONOLACTONE 25 MG TABLET PO SCH (08:34)
[2018-08-25] MEDS: PROPRANOLOL 10 MG TABLET PO SCH (08:34)
[2018-08-25] MEDS: THIAMINE 100 MG TABLET PO SCH (08:34)
[2018-08-25] MEDS: PANTOPRAZOLE 40 MG TABLET PO SCH (08:35)
[2018-08-25] MEDS: FUROSEMIDE 20 MG TABLET PO SCH (08:35)
== END 2018-08-25 11:15 | disposition home or self-care (01) | DRG 434 ==
LOC: EDBD → EDUNIT# → N.ED 16:12 → N.EDINP 19:49 → N.2E 20:22
PROVIDERS: ADMIT Internal Medicine; ATTEND Internal Medicine

== ENCOUNTER 2018-08-26 21:48 | Observation (INO) ==
[2018-08-26] MEDS ORDERED: THIAMINE INJ 100 MG, FOLIC ACID INJ 1 MG, MAGNESIUM SULF INJ 2 GM, MULTIVITAMIN INJ 10 ... IV STA (22:29)
[2018-08-26] MEDS ORDERED: LORazepam 2 MG/1 ML VIAL IV STA (23:02)
[2018-08-26 23:06] LABS: Basophils % 0.7 % (0.0-0.8); Eosinophils # 0.1 10*3/uL (0.0-0.87); Hematocrit 32.2 VOL% (35.7-47.0); Hemoglobin 10.1 GM/DL (12.0-16.0); Immature Granulocytes % 0.2 %; Immature Granulocytes Absolute 0.01 #; Lymphocytes # 2.7 10*3/uL (1.4-4.0); Lymphocytes % 44.7 % (21.3-54.2); Mean Corpuscular HGB Conc 31.4 GM/DL (32-36); Mean Corpuscular Volume 104.5 FL (87-102); Mean Platelet Volume 10.8 FL (9.6-12.0); Monocytes % 9.7 % (1.7-12.7); Neutrophils % 42.7 % (38.7-73.9); Platelet Count 191 T/CUMM (130-400); Red Blood Count 3.08 MC/CUMM (3.8-5.5)
[2018-08-26 23:15] LABS: INR 1.3; PT Patient Result 14.5 SECS; Partial Thromboplastin Time 25.1 SECS (0-40)
[2018-08-26 23:17] LABS: Apearance,Urine CLEAR (Clear); Bilirubin,Urine Negative (Negative); Blood, Urine Small mg/dL (Negative); Glucose,Urine (UA) Negative (Negative); Hyaline Casts,Urine 15 /LPF (0-3); Ketones,Urine Negative (Negative); Mucus,Urine Occasional /LPF (Occasional); Nitrite,Urine Negative (Negative); Protein,Urine Negative; RBC,Urine 4 /HPF (0-4); Squamous Epithelial Cell,Urine Occasional /HPF (0-10); Urine Color Yellow (Yellow); Urine Specific Gravity 1.009 (1.001-1.035); Urine Urobilinogen < 2.0 EU/DL (0.2-1.0); WBC,Urine 2 /HPF (0-6)
[2018-08-26 23:26] LABS: Barbiturates Screen,Urine Negative (Negative); Benzodiazepines Screen,Urine Positive (Negative); Cannabinoid Screen,Urine Negative (Negative); Opiate Screen,Urine Negative (Negative); Phencyclidine Screen,Urine Negative (Negative)
[2018-08-26 23:36] LABS: Albumin 2.1 G/DL (3.4-5.0); Bilirubin,Total 0.5 MG/DL (0.2-1.0); Calcium 7.6 MG/DL (8.5-10.1); Osmolality,Calculated 285.7 MOS/KG (273-304); Total Protein 5.8 G/DL (6.4-8.3)
[2018-08-27] MEDS ORDERED: ONDANSETRON 4 MG/2 ML VIAL IV PRN (04:45)
[2018-08-27] MEDS ORDERED: NICOTINE 21 MG/24 HR PATCH TRANSDERM PRN (04:45)
[2018-08-27] MEDS ORDERED: LEVOTHYROXINE 50 MCG TABLET PO SCH (06:30)
[2018-08-27] MEDS ORDERED: chlordiazePOXIDE 10 MG CAPSULE PO PRN (08:53)
[2018-08-27] MEDS ORDERED: SPIRONOLACTONE 25 MG TABLET PO SCH (09:00)
[2018-08-27] MEDS ORDERED: FUROSEMIDE 20 MG TABLET PO SCH (09:00)
[2018-08-27 11:38] VITALS: BP 126/96
== END 2018-08-27 15:25 | disposition home or self-care (01) ==
LOC: EDUNIT# → EDBD → N.ED 21:48 → N.EDINP 21:48 → N.5E 08-27 05:04
PROVIDERS: ADMIT Hospitalist; ATTEND Hospitalist

== ENCOUNTER 2018-09-22 06:08 | Observation (INO) ==
[2018-09-22] MEDS ORDERED: LORazepam 2 MG/1 ML VIAL IV STA ×2 (06:29→11:24)
[2018-09-22] MEDS ORDERED: LORazepam 1 MG TABLET PO STA (06:29)
[2018-09-22 07:35] LABS: Basophils % 0.5 % (0.0-0.8); Eosinophils # 0.1 10*3/uL (0.0-0.87); Eosinophils % 0.9 % (0.00-10.9); Hematocrit 30.4 VOL% (35.7-47.0); Hemoglobin 9.6 GM/DL (12.0-16.0); Immature Granulocytes % 0.2 %; Immature Granulocytes Absolute 0.01 #; Lymphocytes # 1.3 10*3/uL (1.4-4.0); Lymphocytes % 22.4 % (21.3-54.2); Mean Corpuscular HGB Conc 31.6 GM/DL (32-36); Mean Corpuscular Volume 104.1 FL (87-102); Mean Platelet Volume 10.9 FL (9.6-12.0); Monocytes % 10.1 % (1.7-12.7); Neutrophils % 65.9 % (38.7-73.9); Platelet Count 103 T/CUMM (130-400); Red Blood Count 2.92 MC/CUMM (3.8-5.5); Red Cell Distribution Width 13.2 % (9.3-17.3); White Blood Count 5.8 T/CUMM (4-12)
[2018-09-22 07:43] LABS: Alanine Aminotransferase 38 U/L (13-56); Albumin 2.6 G/DL (3.4-5.0); Alkaline Phosphatase 100 U/L (45-117); Aspartate Amino Transferase 117 U/L (0-37); Blood Urea Nitrogen 11 MG/DL (7-18); Calcium 7.9 MG/DL (8.5-10.1); Glucose 118 MG/DL (74-106); Osmolality,Calculated 269.1 MOS/KG (273-304); Total Protein 6.9 G/DL (6.4-8.3)
[2018-09-22 07:53] LABS: Barbiturates Screen,Urine Negative (Negative); Benzodiazepines Screen,Urine Positive (Negative); Cannabinoid Screen,Urine Negative (Negative); Opiate Screen,Urine Positive (Negative); Phencyclidine Screen,Urine Negative (Negative)
[2018-09-22 08:19] LABS: Hypochromasia 1+; Platelet Estimate Decreased
[2018-09-22] MEDS ORDERED: PROMETHAZINE 25 MG/1 ML VIAL IM PRN (08:28)
[2018-09-22] MEDS ORDERED: ACETAMINOPHEN 325 MG TABLET PO PRN (08:28)
[2018-09-22] MEDS ORDERED: MORPHINE 4 MG/1 ML VIAL IV PRN (08:28)
[2018-09-22] MEDS ORDERED: ONDANSETRON 4 MG/2 ML VIAL IV PRN (08:28)
[2018-09-22] MEDS ORDERED: THIAMINE INJ 100 MG, FOLIC ACID INJ 1 MG, MULTIVITAMIN INJ 10 ML in DEXTROSE 5% NACL 0.... IV ONE (08:31)
[2018-09-22 09:54] LABS: Folate 18.6 NG/ML (5.4-24.0)
[2018-09-22] MEDS ORDERED: chlordiazePOXIDE 10 MG CAPSULE PO STA ×2 (11:05→11:09)
[2018-09-22] MEDS: MULTIVITAMIN (CENTRUM) TABLET PO SCH (11:20)
[2018-09-22] MEDS: PANTOPRAZOLE 40 MG TABLET PO SCH ×2 (11:20→20:02)
[2018-09-22] MEDS: FOLIC ACID 1 MG TABLET PO SCH (11:20)
[2018-09-22] MEDS: chlordiazePOXIDE 10 MG CAPSULE PO SCH ×2 (14:48→20:02)
[2018-09-22] MEDS: ZIPRASIDONE 20 MG/1 ML VIAL IM PRN (17:31)
[2018-09-23] MEDS: ZIPRASIDONE 20 MG/1 ML VIAL IM PRN ×3 (02:48→21:56)
[2018-09-23 04:54] LABS: Basophils % 0.6 % (0.0-0.8); Eosinophils # 0.1 10*3/uL (0.0-0.87); Eosinophils % 3.1 % (0.00-10.9); Hematocrit 27.5 VOL% (35.7-47.0); Immature Granulocytes % 0.3 %; Immature Granulocytes Absolute 0.01 #; Lymphocytes # 1.2 10*3/uL (1.4-4.0); Lymphocytes % 36.8 % (21.3-54.2); Mean Corpuscular HGB Conc 32.7 GM/DL (32-36); Mean Corpuscular Volume 101.5 FL (87-102); Mean Platelet Volume 10.6 FL (9.6-12.0); Monocytes % 11.8 % (1.7-12.7); Neutrophils % 47.4 % (38.7-73.9); Platelet Count 82 T/CUMM (130-400); Red Blood Count 2.71 MC/CUMM (3.8-5.5); Red Cell Distribution Width 13.2 % (9.3-17.3); White Blood Count 3.2 T/CUMM (4-12)
[2018-09-23 05:19] LABS: Bilirubin,Total 1.7 MG/DL (0.2-1.0); Calcium 7.3 MG/DL (8.5-10.1); Osmolality,Calculated 275.4 MOS/KG (273-304); Total Protein 5.4 G/DL (6.4-8.3)
[2018-09-23 06:07] LABS: Anisocytosis 1+; Platelet Estimate Decreased
[2018-09-23] MEDS: THIAMINE 100 MG TABLET PO SCH (08:03)
[2018-09-23] MEDS: MULTIVITAMIN (CENTRUM) TABLET PO SCH (08:03)
[2018-09-23] MEDS: FOLIC ACID 1 MG TABLET PO SCH (08:03)
[2018-09-23] MEDS: PANTOPRAZOLE 40 MG TABLET PO SCH ×2 (08:03→20:31)
[2018-09-23] MEDS: chlordiazePOXIDE 10 MG CAPSULE PO SCH (08:03)
[2018-09-23] MEDS: POTASSIUM CHLORIDE 20 MEQ TABLET PO PRN ×3 (09:38→14:01)
[2018-09-23] MEDS: chlordiazePOXIDE 25 MG CAPSULE PO SCH ×2 (15:51→20:31)
[2018-09-24] MEDS: POTASSIUM CHLORIDE 20 MEQ TABLET PO PRN ×2 (01:07→05:38)
[2018-09-24 05:03] LABS: Basophils % 0.3 % (0.0-0.8); Eosinophils # 0.1 10*3/uL (0.0-0.87); Eosinophils % 2.7 % (0.00-10.9); Hematocrit 28.4 VOL% (35.7-47.0); Hemoglobin 9.4 GM/DL (12.0-16.0); Lymphocytes % 33.9 % (21.3-54.2); Mean Corpuscular HGB Conc 33.1 GM/DL (32-36); Mean Corpuscular Volume 102.2 FL (87-102); Monocytes % 13.1 % (1.7-12.7); Platelet Count 86 T/CUMM (130-400); Red Blood Count 2.78 MC/CUMM (3.8-5.5); Red Cell Distribution Width 13.8 % (9.3-17.3)
[2018-09-24 05:17] LABS: Bilirubin,Total 0.9 MG/DL (0.2-1.0); Calcium 7.4 MG/DL (8.5-10.1); Osmolality,Calculated 286.7 MOS/KG (273-304); Total Protein 5.5 G/DL (6.4-8.3)
[2018-09-24 05:54] LABS: Hypochromasia 1+; Platelet Estimate Decreased
[2018-09-24 06:18] VITALS: BP 117/84
[2018-09-24] MEDS: chlordiazePOXIDE 25 MG CAPSULE PO SCH (09:18)
[2018-09-24] MEDS: PANTOPRAZOLE 40 MG TABLET PO SCH (09:18)
[2018-09-24] MEDS: THIAMINE 100 MG TABLET PO SCH (09:18)
[2018-09-24] MEDS: FOLIC ACID 1 MG TABLET PO SCH (09:18)
[2018-09-24] MEDS: MULTIVITAMIN (CENTRUM) TABLET PO SCH (09:19)
== END 2018-09-24 10:50 | disposition home or self-care (01) ==
LOC: N.EDINP 06:08 → N.ED 06:08 → N.CC 13:03
PROVIDERS: ADMIT Internal Medicine; ATTEND Internal Medicine

== ENCOUNTER 2018-11-16 14:00 | Observation (INO) ==
[2018-11-16 15:09] LABS: Basophils % 0.7 % (0.0-0.8); Eosinophils # 0.1 10*3/uL (0.0-0.87); Eosinophils % 1.4 % (0.00-10.9); Hematocrit 36.1 VOL% (35.7-47.0); Hemoglobin 11.6 GM/DL (12.0-16.0); Immature Granulocytes % 0.2 %; Immature Granulocytes Absolute 0.01 #; Lymphocytes # 2.3 10*3/uL (1.4-4.0); Mean Corpuscular HGB Conc 32.1 GM/DL (32-36); Mean Corpuscular Volume 104.6 FL (87-102); Mean Platelet Volume 9.9 FL (9.6-12.0); Monocytes % 10.4 % (1.7-12.7); Neutrophils % 46.3 % (38.7-73.9); Platelet Count 161 T/CUMM (130-400); Red Blood Count 3.45 MC/CUMM (3.8-5.5); Red Cell Distribution Width 14.3 % (9.3-17.3); White Blood Count 5.7 T/CUMM (4-12)
[2018-11-16 15:21] LABS: INR 1.2; PT Patient Result 12.8 SECS
[2018-11-16 15:29] LABS: Alanine Aminotransferase 58 U/L (13-56); Albumin 2.4 G/DL (3.4-5.0); Alkaline Phosphatase 126 U/L (45-117); Aspartate Amino Transferase 229 U/L (0-37); Blood Urea Nitrogen 5 MG/DL (7-18); Calcium 7.4 MG/DL (8.5-10.1); Glucose 102 MG/DL (74-106); Osmolality,Calculated 275.4 MOS/KG (273-304); Total Protein 6.8 G/DL (6.4-8.3)
[2018-11-16] MEDS ORDERED: SODIUM CHLORIDE 0.9% 1,000 ML IV STA (15:35)
[2018-11-16] MEDS ORDERED: ONDANSETRON 4 MG/2 ML VIAL IV STA (16:09)
[2018-11-16] MEDS ORDERED: LORazepam 2 MG/1 ML VIAL IV PRN (16:55)
[2018-11-16] MEDS: chlordiazePOXIDE 25 MG CAPSULE PO SCH ×2 (18:47→23:59)
[2018-11-16] MEDS: SODIUM CHLOR 0.45% KCL 20 MEQ 20 MEQ/1,000 ML BAG IV SCH (20:29)
[2018-11-16] MEDS: MORPHINE 4 MG/1 ML VIAL IV PRN (20:30)
[2018-11-16] MEDS: SPIRONOLACTONE 25 MG TABLET PO SCH (20:31)
[2018-11-16] MEDS: PROPRANOLOL 10 MG TABLET PO SCH (20:31)
[2018-11-16] MEDS: ONDANSETRON 4 MG/2 ML VIAL IV PRN (22:18)
[2018-11-16 22:53] LABS: Apearance,Urine CLEAR (Clear); Bilirubin,Urine Negative (Negative); Blood, Urine Negative (Negative); Glucose,Urine (UA) Negative (Negative); Ketones,Urine Negative (Negative); Mucus,Urine Occasional /LPF (Occasional); Nitrite,Urine Negative (Negative); Protein,Urine Negative; RBC,Urine 5 /HPF (0-4); Squamous Epithelial Cell,Urine Few /HPF (0-10); Urine Color Yellow (Yellow); Urine Specific Gravity > 1.060 (1.001-1.035); WBC,Urine 1 /HPF (0-6)
[2018-11-17] MEDS: MORPHINE 4 MG/1 ML VIAL IV PRN ×3 (00:34→09:49)
[2018-11-17 01:17] LABS: Basophils % 0.7 % (0.0-0.8); Eosinophils # 0.1 10*3/uL (0.0-0.87); Eosinophils % 1.9 % (0.00-10.9); Hematocrit 30.2 VOL% (35.7-47.0); Hemoglobin 9.6 GM/DL (12.0-16.0); Immature Granulocytes % 0.2 %; Immature Granulocytes Absolute 0.01 #; Lymphocytes # 2.1 10*3/uL (1.4-4.0); Lymphocytes % 38.6 % (21.3-54.2); Mean Corpuscular HGB Conc 31.8 GM/DL (32-36); Mean Corpuscular Volume 106.3 FL (87-102); Mean Platelet Volume 10.1 FL (9.6-12.0); Monocytes % 12.4 % (1.7-12.7); Neutrophils % 46.2 % (38.7-73.9); Platelet Count 120 T/CUMM (130-400); Red Blood Count 2.84 MC/CUMM (3.8-5.5); Red Cell Distribution Width 14.4 % (9.3-17.3); White Blood Count 5.3 T/CUMM (4-12)
[2018-11-17 01:47] LABS: Albumin 2.1 G/DL (3.4-5.0); Bilirubin,Total 0.8 MG/DL (0.2-1.0); Osmolality,Calculated 274.5 MOS/KG (273-304); Total Protein 5.8 G/DL (6.4-8.3)
[2018-11-17] MEDS: chlordiazePOXIDE 25 MG CAPSULE PO SCH ×2 (05:30→13:06)
[2018-11-17] MEDS: SODIUM CHLOR 0.45% KCL 20 MEQ 20 MEQ/1,000 ML BAG IV SCH (05:57)
[2018-11-17] MEDS ORDERED: LEVOTHYROXINE 50 MCG TABLET PO SCH (06:00)
[2018-11-17] MEDS ORDERED: FUROSEMIDE 20 MG TABLET PO SCH (09:00)
[2018-11-17] MEDS: ONDANSETRON 4 MG/2 ML VIAL IV PRN (09:00)
[2018-11-17] MEDS ORDERED: ARIPiprazole 10 MG TABLET PO SCH (09:00)
[2018-11-17] MEDS ORDERED: PANTOPRAZOLE 40 MG TABLET PO SCH (09:00)
[2018-11-17] MEDS ORDERED: FUROSEMIDE 40 MG/4 ML VIAL IV SCH (09:00)
[2018-11-17] MEDS: SPIRONOLACTONE 25 MG TABLET PO SCH (12:37)
[2018-11-17] MEDS: PROPRANOLOL 10 MG TABLET PO SCH (12:37)
[2018-11-17 15:58] VITALS: BP 112/80
[2018-11-17 20:03] LABS: Neutrophils,Peritoneal Fluid 7 %; RBC,Peritoneal Fluid 46 T/CUMM
== END 2018-11-17 16:57 | disposition home or self-care (01) ==
LOC: EDBD → EDUNIT# → N.EDINP 14:00 → N.ED 14:00 → N.EDINP 18:18 → N.2E 18:25
PROVIDERS: ADMIT Family Medicine; ATTEND Family Medicine